=== PATIENT | male | born 1965 | race Caucasian/White ===

== ENCOUNTER → 2021-06-12 | Outpatient (CLI) | payer OTHER ==
--- NOTE | 2021-06-12 11:06 | Diagnostic Imaging Report ---
INDICATION: Back pain. 3 views were obtained FINDINGS: The alignment is normal. The vertebral body heights are well-maintained. No spondylolysis or spondylolisthesis. There are mild degenerative changes. IMPRESSION: Mild lumbar spondylosis otherwise unremarkable. Dictated by: Dictated on workstation # [id number]
== END ==
LOC: RAD 09:48
PROVIDERS: ATTEND Anesthesiology Pain Medicine
DX: Z02.71 Encounter for disability determination (principal); M47.896 Other spondylosis, lumbar region; C18.9 Malignant neoplasm of colon, unspecified; K74.60 Unspecified cirrhosis of liver
CPT/HCPCS: 72100